=== PATIENT | male | born 1970 | race Caucasian/White ===

== ENCOUNTER 2024-04-27 18:59 | Emergency (ER) | payer OTHER ==
[2024-04-27 19:09] VITALS: BP 182/96; PULSE 67; RESP 18; TEMP 98.2; BMI 26.4
== END 2024-04-27 20:01 | disposition left against medical advice (07) ==
LOC: JER 18:59 → JERFT 18:59
DX: Z53.21 Procedure and treatment not carried out due to patient leaving prior to being seen by health care provider (principal)
CPT/HCPCS: 99281-25

== ENCOUNTER 2025-01-22 22:58 | Emergency (ER) | payer OTHER ==
[2025-01-22 23:06] VITALS: TEMP 97.3; BMI 24.5
[2025-01-22] MEDS ORDERED: LIDOCAINE 4% PATCH TP ONE (23:38)
[2025-01-22] MEDS ORDERED: ACETAMINOPHEN 500 MG TABLET (FP) ONE (23:38)
[2025-01-22] MEDS: ACETAMINOPHEN 500 MG TABLET (FP) PO ONE (23:52)
[2025-01-22] MEDS: LIDOCAINE 4% PATCH TP ONE (23:52)
[2025-01-23 01:03] VITALS: BP 159/88; PULSE 68; RESP 16
[2025-01-23] MEDS ORDERED: LIDOCAINE PATCH REMOVAL MC ONE (12:00)
== END 2025-01-23 03:29 | disposition home or self-care (01) ==
LOC: JER 22:58
DX: F10.929 Alcohol use, unspecified with intoxication, unspecified (principal); M25.532 Pain in left wrist; W18.30XA Fall on same level, unspecified, initial encounter
CPT/HCPCS: 70450-TC; 71045-TC-FY; 72125-TC; 73110-TC-LT-FY; 73130-TC-LT-FY; 99284-25